=== PATIENT | male | born 1955 | race Caucasian/White ===

== ENCOUNTER 2023-10-19 09:41 | Observation (INO) ==
[2023-10-19 11:45] VITALS: BMI 31.3
[2023-10-19 12:42] LABS: BASOPHILS # (AUTO) 0.2 X10^3/uL (0.0-0.1); BASOPHILS % (AUTO) 1.8 % (0.2-1.0); EOSINOPHILS # (AUTO) 0.1 x10^3/uL (0.0-0.2); EOSINOPHILS % (AUTO) 1.4 % (0.9-2.9); HEMATOCRIT 46.3 % (42.0-54.0); HEMOGLOBIN 15.4 g/dL (13.5-18.0); LYMPHOCYTES # (AUTO) 3.5 X10^3/uL (1.3-2.9); LYMPHOCYTES % (AUTO) 40.7 % (21.0-51.0); MEAN CORPUSCULAR HEMOGLOBIN 30.3 pg (27.0-34.0); MEAN CORPUSCULAR HGB CONC 33.3 g/dL (33.0-35.0); MEAN PLATELET VOLUME 7.7 fL (7.4-11.0); MONOCYTES # (AUTO) 0.9 x10^3/uL (0.3-0.8); MONOCYTES % (AUTO) 9.9 % (0.0-13.0); NEUTROPHILS % (AUTO) 46.2 % (42.0-75.0); PLATELET COUNT 438 X10^3/uL (150.0-450.0); RED BLOOD COUNT 5.09 X10^6/uL (4.7-6.0); RED CELL DISTRIBUTION WIDTH 14.8 % (11.6-16.5); WHITE BLOOD COUNT 8.7 X10^3/uL (3.6-10.0)
[2023-10-19] MEDS: VANCOMYCIN IV *PREMIX 1 G/200 ML BAG 1 G/200 ML PIGGYBACK IV SCH (13:00)
[2023-10-19] MEDS: NS 250 ML IV 250 ML IV ONE (13:00)
[2023-10-19 13:03] LABS: ALANINE AMINOTRANSFERASE 24 Units/L (12-78); ALBUMIN 3.3 g/dL (3.4-5.0); ALKALINE PHOSPHATASE 53 Units/L (46-116); ASPARTATE AMINO TRANSFERASE 23 Units/L (15-37); BLOOD UREA NITROGEN 13 mg/dL (7-18); CALCIUM 8.6 mg/dL (8.5-10.1); CHLORIDE 105 mmol/L (98-107); COR CA(FOR HYPOALB) 9.2 mg/dL (8.5-10.1); CREATININE 0.94 mg/dL (0.70-1.30); GLUCOSE 89 mg/dL (65-99); POTASSIUM 3.8 mmol/L (3.5-5.1); SODIUM 143 mmol/L (136-145); TOTAL PROTEIN 7.1 g/dL (6.4-8.2); eGFR NON BLACK RACES > 60 (>60)
[2023-10-19] MEDS: K-DUR TAB 20 MEQ PO SCH (13:55)
[2023-10-19] MEDS ORDERED: CONSULT PHARMACY - POTASSIUM & MAGNESIUM XX SCH (14:00)
[2023-10-19] MEDS: LOVENOX INJ 40 MG SYR SC SCH (16:35)
--- NOTE | 2023-10-20 06:12 | RAD ---
EXAM:Left hand three viewsHISTORY:Cellulitis left index fingerCOMPARISON:NoneFINDINGS:There is no evidence for fracture, lytic, or blastic lesion. No erosive arthritis is identified. Diffuse soft tissue swelling involves the 2nd digit. No soft tissue gas or radiopaque foreign body is identified. Carpal bones are intact and normally aligned. Distal radius and distal ulna are intact.IMPRESSION:Diffuse soft tissue swelling involving the 2nd digitNo definite acute bone or joint abnormality identifiedTHIS IS AN ELECTRONICALLY VERIFIED FINAL REPORT10/20/2023 6:08 AM - Electronically signed by Newton Alcala MD
[2023-10-20 06:25] LABS: BASOPHILS # (AUTO) 0.1 X10^3/uL (0.0-0.1); BASOPHILS % (AUTO) 0.9 % (0.2-1.0); EOSINOPHILS # (AUTO) 0.1 x10^3/uL (0.0-0.2); EOSINOPHILS % (AUTO) 2.2 % (0.9-2.9); HEMOGLOBIN 15.6 g/dL (13.5-18.0); LYMPHOCYTES # (AUTO) 3.3 X10^3/uL (1.3-2.9); LYMPHOCYTES % (AUTO) 50.6 % (21.0-51.0); MEAN CORPUSCULAR HEMOGLOBIN 30.2 pg (27.0-34.0); MEAN CORPUSCULAR HGB CONC 33.2 g/dL (33.0-35.0); MEAN CORPUSCULAR VOLUME 91.1 fL (80.0-100.0); MEAN PLATELET VOLUME 7.7 fL (7.4-11.0); MONOCYTES # (AUTO) 0.8 x10^3/uL (0.3-0.8); MONOCYTES % (AUTO) 12.7 % (0.0-13.0); NEUTROPHILS # (AUTO) 2.2 x10^3/uL (2.2-4.8); NEUTROPHILS % (AUTO) 33.6 % (42.0-75.0); PLATELET COUNT 453 X10^3/uL (150.0-450.0); RED BLOOD COUNT 5.16 X10^6/uL (4.7-6.0); RED CELL DISTRIBUTION WIDTH 14.6 % (11.6-16.5); WHITE BLOOD COUNT 6.5 X10^3/uL (3.6-10.0)
[2023-10-20 06:29] LABS: ALANINE AMINOTRANSFERASE 24 Units/L (12-78); ALBUMIN 3.1 g/dL (3.4-5.0); ALKALINE PHOSPHATASE 53 Units/L (46-116); ASPARTATE AMINO TRANSFERASE 26 Units/L (15-37); BLOOD UREA NITROGEN 12 mg/dL (7-18); CALCIUM 8.5 mg/dL (8.5-10.1); CARBON DIOXIDE 29.9 mmol/L (21-32); CHLORIDE 108 mmol/L (98-107); COR CA(FOR HYPOALB) 9.2 mg/dL (8.5-10.1); CREATININE 0.99 mg/dL (0.70-1.30); GLUCOSE 94 mg/dL (65-99); POTASSIUM 4.3 mmol/L (3.5-5.1); SODIUM 145 mmol/L (136-145); TOTAL PROTEIN 6.8 g/dL (6.4-8.2); eGFR NON BLACK RACES > 60 (>60)
--- NOTE | 2023-10-20 11:12 | DR.PROGNOT ---
HOSPITAL PROGRESS NOTE Progress Note for Day of: Progress Note Date: 10/20/23 Chief Complaint Chief Complaint: Feeling better today with less pain of the left index finger. Still having moderate swollen left index finger with the blisters and ecchymotic area on the medial and lateral aspect of the index finger Past Medical Family Social History Past Med/Fam/Surg Hx: No changes since H&P Allergies: Allergies onion Allergy (Verified 10/19/23 12:21) NAUSEA Vital Signs Vital Signs: Vital Signs Temperature 97.5 F Temperature 97.9 F Pulse Rate [Right Radial] 74 Pulse Rate [Right Radial] 68 Respiratory Rate 20 Respiratory Rate 18 Blood Pressure [Right Arm] 124/83 Blood Pressure [Right Arm] 133/83 O2 Sat by Pulse Oximetry 95 O2 Sat by Pulse Oximetry 95 Physical Exam Oriented: Normal Eyes: Normal Ear: Normal Nose: Normal Respiratory: Normal Cardiovascular: Normal GI:Auscultation: Normal GI:Palpation: Normal Musculoskeletal: Hand (Moderate edema involving the left index finger with areas of ecchymosis and small blisters on both medial and lateral aspects.) Speech Pattern: Clear and Appropriate Laboratory and Diagnostics 10/20/23 05:34 10/20/23 05:34 Labs: Laboratory WBC 6.5 X10^3/uL (3.6-10.0) 10/20/23 05:34 RBC 5.16 X10^6/uL (4.7-6.0) 10/20/23 05:34 Hgb 15.6 g/dL (13.5-18.0) 10/20/23 05:34 Hct 47.0 % (42.0-54.0) 10/20/23 05:34 MCV 91.1 fL (80.0-100.0) 10/20/23 05:34 MCH 30.2 pg (27.0-34.0) 10/20/23 05:34 MCHC 33.2 g/dL (33.0-35.0) 10/20/23 05:34 RDW 14.6 % (11.6-16.5) 10/20/23 05:34 Plt Count 453 X10^3/uL (150.0-450.0) H 10/20/23 05:34 MPV 7.7 fL (7.4-11.0) 10/20/23 05:34 Neut % (Auto) 33.6 % (42.0-75.0) L 10/20/23 05:34 Lymph % (Auto) 50.6 % (21.0-51.0) 10/20/23 05:34 [place] % (Auto) 12.7 % (0.0-13.0) 10/20/23 05:34 Eos % (Auto) 2.2 % (0.9-2.9) 10/20/23 05:34 Baso % (Auto) 0.9 % (0.2-1.0) 10/20/23 05:34 Neut # (Auto) 2.2 x10^3/uL (2.2-4.8) 10/20/23 05:34 Lymph # (Auto) 3.3 X10^3/uL (1.3-2.9) H 10/20/23 05:34 [place] # (Auto) 0.8 x10^3/uL (0.3-0.8) 10/20/23 05:34 Eos # (Auto) 0.1 x10^3/uL (0.0-0.2) 10/20/23 05:34 Baso # (Auto) 0.1 X10^3/uL (0.0-0.1) 10/20/23 05:34 Absolute Nucleated RBC 0.1 /100WBC 10/20/23 05:34 Sodium 145 mmol/L (136-145) 10/20/23 05:34 Corrected Sodium TNP 10/20/23 05:34 Potassium 4.3 mmol/L (3.5-5.1) 10/20/23 05:34 Chloride 108 mmol/L (98-107) H 10/20/23 05:34 Carbon Dioxide 29.9 mmol/L (21-32) 10/20/23 05:34 BUN 12 mg/dL (7-18) 10/20/23 05:34 Creatinine 0.99 mg/dL (0.70-1.30) 10/20/23 05:34 Est GFR (MDRD) Af Amer > 60 (>60) 10/20/23 05:34 Est GFR (MDRD) Non-Af > 60 (>60) 10/20/23 05:34 Glucose 94 mg/dL (65-99) 10/20/23 05:34 Calcium 8.5 mg/dL (8.5-10.1) 10/20/23 05:34 Corrected Calcium 9.2 mg/dL (8.5-10.1) 10/20/23 05:34 Magnesium 2.1 mg/dL (2.0-2.9) 10/19/23 12:05 Total Bilirubin 0.70 mg/dL (0.2-1.0) 10/20/23 05:34 AST 26 Units/L (15-37) 10/20/23 05:34 ALT 24 Units/L (12-78) 10/20/23 05:34 Alkaline Phosphatase 53 Units/L (46-116) 10/20/23 05:34 Total Protein 6.8 g/dL (6.4-8.2) 10/20/23 05:34 Albumin 3.1 g/dL (3.4-5.0) L 10/20/23 05:34 Globulin 3.7 g/dL (2.5-4.5) 10/20/23 05:34 Albumin/Globulin Ratio 0.8 Ratio (1.1-2.1) L 10/20/23 05:34 Assessment and Plan 1: Cellulitis left index finger with erythema and edema involving the whole finger. Improving with IV vancomycin. To keep the finger elevated using a arm sling Same IV vancomycin for now Awaiting culture report done 2 days ago.. No need for surgery now.
[2023-10-20 20:57] LABS: CREATININE 0.84 mg/dL (0.70-1.30); VANCOMYCIN,TROUGH 6.8 ug/mL (15-20)
[2023-10-20] MEDS: PHARMACY COMMENT IV NR (21:10)
[2023-10-20] MEDS: VANCOMYCIN IV *PREMIX 1.25 G/250 ML BAG 1.25 G/250 ML PIGGYBACK IV SCH (22:07)
[2023-10-21 00:10] VITALS: RESP 20
[2023-10-21 06:12] LABS: BASOPHILS # (AUTO) 0.1 X10^3/uL (0.0-0.1); BASOPHILS % (AUTO) 0.8 % (0.2-1.0); EOSINOPHILS # (AUTO) 0.2 x10^3/uL (0.0-0.2); EOSINOPHILS % (AUTO) 2.5 % (0.9-2.9); HEMATOCRIT 45.2 % (42.0-54.0); HEMOGLOBIN 15.1 g/dL (13.5-18.0); LYMPHOCYTES # (AUTO) 3.3 X10^3/uL (1.3-2.9); LYMPHOCYTES % (AUTO) 48.3 % (21.0-51.0); MEAN CORPUSCULAR HEMOGLOBIN 30.1 pg (27.0-34.0); MEAN CORPUSCULAR HGB CONC 33.4 g/dL (33.0-35.0); MEAN CORPUSCULAR VOLUME 90.1 fL (80.0-100.0); MEAN PLATELET VOLUME 7.7 fL (7.4-11.0); MONOCYTES # (AUTO) 0.7 x10^3/uL (0.3-0.8); MONOCYTES % (AUTO) 10.6 % (0.0-13.0); NEUTROPHILS # (AUTO) 2.6 x10^3/uL (2.2-4.8); NEUTROPHILS % (AUTO) 37.8 % (42.0-75.0); PLATELET COUNT 450 X10^3/uL (150.0-450.0); RED BLOOD COUNT 5.01 X10^6/uL (4.7-6.0); RED CELL DISTRIBUTION WIDTH 14.5 % (11.6-16.5); WHITE BLOOD COUNT 6.9 X10^3/uL (3.6-10.0)
[2023-10-21 06:32] LABS: ALANINE AMINOTRANSFERASE 24 Units/L (12-78); ALBUMIN 2.9 g/dL (3.4-5.0); ALKALINE PHOSPHATASE 58 Units/L (46-116); ASPARTATE AMINO TRANSFERASE 19 Units/L (15-37); BLOOD UREA NITROGEN 11 mg/dL (7-18); CALCIUM 8.3 mg/dL (8.5-10.1); CARBON DIOXIDE 25.7 mmol/L (21-32); CHLORIDE 107 mmol/L (98-107); COR CA(FOR HYPOALB) 9.2 mg/dL (8.5-10.1); CREATININE 0.84 mg/dL (0.70-1.30); GLUCOSE 95 mg/dL (65-99); POTASSIUM 3.9 mmol/L (3.5-5.1); SODIUM 142 mmol/L (136-145); TOTAL PROTEIN 6.5 g/dL (6.4-8.2); eGFR NON BLACK RACES > 60 (>60)
[2023-10-21 09:54] VITALS: PULSE 66
[2023-10-21 13:22] VITALS: BP 143/82; TEMP 98.1; O2SAT 95
== END 2023-10-21 13:10 | disposition home or self-care (01) ==
LOC: MED/SURG → INTOOBSV 10:38 → OBSVTOIN 10:38
PROVIDERS: ADMIT Surgery; ATTEND Surgery
DX: R79.89 Other specified abnormal findings of blood chemistry; L03.012 Cellulitis of left finger